=== PATIENT | female | born 1985 | race Caucasian/White ===

== ENCOUNTER 2020-08-26 17:14 | Emergency (ER) | payer OTHER, SELFPAY ==
--- NOTE | 2020-08-26 17:21 | ED.WOUNDLAC ---
HPI - Wound/Laceration General Chief Complaint: Wound/Laceration Stated Complaint: laceration right wrist Time Seen by Provider: 08/26/20 17:21 Source: patient and RN notes reviewed History of Present Illness HPI narrative: Patient is a 34-year-old female who presents the urgent care with complaints of a laceration to the right wrist. Patient states that she was doing dishes and a platter busted in her hand. Patient is right-hand dominant. Patient denies of any other injuries. Patient has applied pressure with a wash rag but has not cleanse the wound prior to arrival. Patient states it did just happen. No other acute complaints. No acute distress noted. Patient aware of the plan of care. Some parts of this dictation were generated by voice recognition software and may contain typographical and/or grammatical inaccuracies. Related Data Allergies Allergy/AdvReac Type Severity Reaction Status Date / Time No Known Allergies Allergy Unverified 09/20/17 13:28 Review of Systems Review of Systems: Narrative: CONSTITUTIONAL: Denies fever, chills, or sweats. EYES: Denies visual changes, redness, or discharge. ENT: Denies rhinorrhea, congestion, sore throat, or otalgia. CARDIOVASCULAR: Denies chest pain, palpitations, or edema. RESPIRATORY: Denies cough or dyspnea. GASTROINTESTINAL: Denies abdominal pain, nausea, vomiting, or diarrhea. GENITOURINARY: Denies dysuria or hematuria. SKIN: Reports of a laceration to the right wrist MUSCULOSKELETAL: Denies back pain, joint pain, or myalgia. NEUROLOGIC: Denies headache, numbness, or weakness. All other systems reviewed are negative, except as documented in HPI. PMFSH Social History Social History Smoking status: Never smoker Alcohol intake: never Comments At the time of my signature, I reviewed and agree with the nursing past medical, surgical, social, and family history. There is no relevant family history pertinent to the patient complaint. Exam Narrative: Exam Narrative: GENERAL: This is a well-nourished, well-developed patient, in no apparent distress. HEAD: normocephalic, atraumatic. EYES: PERRL. Sclera clear/white. Vision is grossly intact. EARS: External ears normal NOSE: External nose normal with no obvious nasal discharge, nares without redness, no rhinorrhea. THROAT: Mucous membranes moist NECK: Neck supple SKIN: 1 cm puncture to the dorsal aspect of the right wrist NEURO: awake, alert, and oriented to person, place and time. There were no obvious focal neurologic abnormalities. EXTREMITIES: No clubbing, cyanosis, or edema. Positive strong right radial pulse with capillary refill less than 2 seconds. Range of motion to right upper extremity within normal limits Course Vital Signs Vital signs: Vital Signs Temperature 98.9 F 08/26/20 17:35 Pulse Rate 72 08/26/20 17:35 Respiratory Rate 16 08/26/20 17:35 Blood Pressure 130/89 08/26/20 17:35 Pulse Oximetry 99 08/26/20 17:35 Temperature 98.9 F 08/26/20 17:35 Pulse Rate 72 08/26/20 17:35 Respiratory Rate 16 08/26/20 17:35 Blood Pressure 130/89 08/26/20 17:35 Pulse Oximetry 99 08/26/20 17:35 Reviewed Procedures Laceration Laceration 1: Site: upper extremity (Wrist) Side (If applicable): right Description: linear (Puncture) Local Anesthetic: lidocaine 2% Pre-repair: irrigated (Technique care normal saline) ====== Skin Level ====== Skin layer closed with: other (Ethilon) Size (cm): 5-0 Number of sutures: 2 ====== Subcutaneous Layer ====== ====== Muscle Layer ====== ====== Tendon Layer ====== Dressin cm puncture to the palmar aspect of the right wrist irrigated with Technicare normal saline. 2% 0.5ml lidocaine for anesthetic used. 2 sutures placed. Wound approximated well. Patient tolerated well. Procedure successful. No complications. MDM - Wound/Laceration MDM Narrative Medical decis
[2020-08-26 17:35] VITALS: BP 130/89; PULSE 72; RESP 16; TEMP 37.2; O2SAT 99
== END 2020-08-26 17:52 | disposition home or self-care (01) ==
PROVIDERS: Emergency Provider Nurse Practitioner Family
DX: S61.511A Laceration without foreign body of right wrist, initial encounter (principal); W26.8XXA Contact with other sharp object(s), not elsewhere classified, initial encounter
CPT/HCPCS: 12001; 99212; G0463

== ENCOUNTER → 2022-04-04 08:51 | Outpatient (CLI) | payer OTHER, SELFPAY ==
--- NOTE | ~2022-04-04 | US_ITS ---
EXAMINATION: US pelvic complete DATE: 04/04/2022 09:08 INDICATION: Left pelvic pain Comparison:No prior studies for comparison. TECHNIQUE: Multiple transabdominal sonographic images of the pelvis performed. FINDINGS: The uterus measures 8.6 x 4.6 x 5.8 cm. The endometrial complex measures 12 mm. The right ovary measures 3.1 x 1.2 x 1.6 cm and the left ovary measures 4.5 x 1.9 x 3 cm. There are small follicles in each ovary. Normal doppler signal in both ovaries. There is no free fluid in the pelvis. There are no abnormal masses seen on either side. IMPRESSION: 1. Mild endometrial thickening measuring 12 mm. Reviewed, dictated and finalized at location A.
== END ==
PROVIDERS: PCP Nurse Practitioner; Visit Provider Nurse Practitioner
DX: R10.2 Pelvic and perineal pain (principal)
CPT/HCPCS: 76856

== ENCOUNTER → 2023-02-14 11:35 | Outpatient (CLI) | payer OTHER, SELFPAY ==
--- NOTE | ~2023-02-14 | US_ITS ---
Pelvic ultrasound. Clinical History: Abnormal uterine bleeding Technique: Realtime transabdominal and transvaginal scanning of the pelvis was performed. Color flow Doppler and Doppler spectral analysis were performed. Findings: The uterus is retroverted.. The endometrial stripe has a thickness of 3 mm. No focal mass is identified. The right ovary measures 2.3 x 1.9 x 3.0 cm. No significant right ovarian or adnexal mass is seen. The left ovary measures 1.9 x 1.2 x 2.7 cm. No significant left ovarian or adnexal mass is seen. There is a small amount of free fluid in the cul de sac. Impression: Small amount of free fluid, otherwise unremarkable exam. Reviewed, dictated and finalized at location . Impression: Small amount of free fluid, otherwise unremarkable exam.
== END ==
PROVIDERS: PCP Nurse Practitioner; Visit Provider Nurse Practitioner
DX: N93.8 Other specified abnormal uterine and vaginal bleeding (principal)
CPT/HCPCS: 76830; 76856

== ENCOUNTER 2024-12-21 14:19 | Outpatient (CLI) | payer OTHER, SELFPAY ==
--- NOTE | ~2024-12-21 | MM_ITS ---
EXAMINATION: MM screening kristyn BI w rita HISTORY: Screening TECHNIQUE: Craniocaudal and mediolateral oblique 3-D tomosynthesis images were obtained and synthetic 2-D images were generated. CAD analysis was submitted and interpreted. COMPARISON: No prior mammogram is available for comparison at this institution. BREAST PARENCHYMAL COMPOSITION: Dense: The breasts are heterogeneously dense, which may obscure small masses FINDINGS: There is no evidence of suspicious mass, calcification, or architectural distortion to sugg est malignancy in either breast. There has been no suspicious interval change. IMPRESSION: 1. No mammographic evidence of malignancy. 2. Recommend routine screening mammography in one year. BI-RADS Category 1: Negative Reviewed, dictated and finalized at location A.
--- OUTSIDE RECORDS SUMMARY | 2024-12-21 14:25 | XMS_ITS | Clinical Summary ---
Author Organization [facility] Address [address] Attn: Epic Prelude ADT CANDYJANNIE SOUTHKARLENE SHEPPARD [id number] Care Team Providers Care Law Librarian Name Role Phone Unavailable Primary Care Provider Unavailabl e Social History Tobacco Use Types Packs/Day Years Used Date Smoking Tobacco: Never Assessed Comments Unknown Sex and Gender Information Value Date Recorded Sex Assigned at Not on file Legal Sex Female 5:16 PM RN INFUSION Gender Identity Not on file Sexual Orientation Not on file Plan of Treatment Health Maintenance Due Date Last Done Comments DTAP/TDAP/TD VACCINES (1 - Tdap) 2004 HEPATITIS B VACCINES (1 of 3 - 19+ 3-dose series) 2004 HPV/Cotest (21-29) 2006 CERVICAL CANCER SCREENING 11/03/2015 HPV/Cotest (30-65) 11/03/2015 PAP SMEAR 11/03/2015 INFLUENZA VACCINE (#1) 2025 HPV VACCINES Aged Out No longer eligi ble based on patient's age to complete this topic
== END 2024-12-21 14:20 | disposition home or self-care (01) ==
LOC: ANHIMG 14:20
PROVIDERS: PCP Nurse Practitioner; Visit Provider Nurse Practitioner
DX: Z12.31 Encounter for screening mammogram for malignant neoplasm of breast (principal)
CPT/HCPCS: 77063; 77067